=== PATIENT | male | born 1975 | race Caucasian/White ===

== ENCOUNTER 2021-04-26 11:27 | Emergency (ER) | payer OTHER, SELFPAY ==
--- NOTE | ~2021-04-26 | XR_ITS ---
EXAMINATION: XR ANKLE, LEFT CLINICAL INFORMATION: Trauma, pain COMPARISON: None TECHNIQUE: AP, lateral, and mortise views of the left ankle. FINDINGS: There is an oblique fracture involving the distal fibula. There is no significant angulation or displacement. No dislocation or destructive process. The medial and posterior malleoli appear intact. Ankle mortise is symmetric. The talar dome shows no osteochondral lesion. Visualized subtalar joint unremarkable. Base of fifth metatarsal appears intact. XR/XR ankle LT 2V IMPRESSION: Fracture distal fibula. No dislocation or destructive process.
[2021-04-26 13:01] VITALS: BP 167/104; PULSE 97; RESP 20; TEMP 36.5; O2SAT 98; BMI 21.2
--- NOTE | 2021-04-26 13:59 | ED_ITS ---
HPI - Extremity Injury (Lower) General Chief Complaint: Extremity Injury, Lower Stated Complaint: FALL Time Seen by Provider: 04/26/21 13:50 Source: patient Mode of arrival: ambulatory Limitations: no limitations History of Present Illness HPI Narrative: Patient presents to ED for left lower extremity pain. Patient presents to ED for left ankle pain since Monday after falling and rolling his ankle. Patient denies hitting head or loss of consciousness. Patient states pain on ambulation since Monday. Patient denies any nausea, vomiting, headache, rectal bleeding, chest pain, or any abdominal pain. Related Data Previous Rx's Medication Instructions Recorded naproxen 500 mg tablet 500 mg PO BID PRN #20 tab 04/26/21 Allergies Allergy/AdvReac Type Severity Reaction Status Date / Time No Known Allergies Allergy Verified 04/26/21 13:56 Review of Systems Review of Systems: Yes all other systems are reviewed and are negative Constitutional: Constitutional: Reports as per HPI and Reports no additional constitutional complaints Eyes: Eyes: Reports as per HPI and Reports no additional eye complaints ENT: Reports system reviewed and no additional complaints, except as documented and Reports as per HPI Cardiovascular: Cardiovascular: Reports as per HPI and Reports no additional cardiovascular complaints Respiratory: Respiratory: Reports as per HPI and Reports no additional resp iratory complaints Gastrointestinal: Gastrointestinal: Reports as per HPI and Reports no additional gastrointestinal complaints Genitourinary: Genitourinary: Reports no additional male genitourinary complaints and Reports as per HPI Musculoskeletal: Musculoskeletal: Reports no additional musculoskeletal complaints, Reports as per HPI and Reports arthralgias (left ankle pain) Integumentary/Breasts: Skin/Breast: Reports system reviewed and no additional complaints, except as docu and Reports as per HPI Neurologic: Reports system reviewed and no additional complaints, except as documented and Reports as per HPI Psychiatric: Psychiatric: Reports no additional psychiatric complaints and Reports as per HPI [facility] Social History Social History Advance Directives: No Advance Directives Information Provided: No Physical Exam Vital Signs: Vital Signs: Last Vital Signs Temp 97.7 F 04/26/21 13:01 Pulse 97 04/26/21 13:01 Resp 20 04/26/21 13:01 BP 167/104 H 04/26/21 13:01 Pulse Ox 98 04/26/21 13:01 Body Mass Index 21.2 Const: General: cooperative, healthy appearing, comfortable, no acute distress, well developed, alert, awake and Physically active Orientation/consciousness: patient oriented x3 HENMT: Head: Yes normal to inspection, Yes No palpable skull fracture present, Yes normocephalic and Yes atraumatic Eyes: General: appearance normal, both eyes and all related structures Neck: Neck: Yes normal visual inspection, Yes full ROM, Yes no lymphade nopathy, Yes no meningeal signs, Yes trachea midline, Yes supple and No tender Chest: Chest palpation & inspection: normal inspection of the chest and normal palpation of entire chest wall Resp: Effort & Inspection: normal respiratory effort and able to speak in complete sentences Auscultation: clear to auscultation bilaterally Cardio: Jugular venous distension: no JVD Heart sounds: S1 normal heart sound present and S2 normal heart sound present GI: Inspection: Yes normal to inspection and No abdominal wall ecchymosis Palpation (GI): Soft to palpation, not firm, nontender, no guarding and not rig id : General: Yes no CVA tenderness Back/Spine/Pelvis: Back: no CVA tenderness and No back tenderness Skin: General skin exam: no rashes or lesions noted and elasticity normal Neuro: General: patient oriented x3, gait normal, tone normal, no meningeal signs and CN's II-XI intact bilaterally Cranial nerves: Yes CN's II-XII intact bilaterally Gait exam (Neuro): Normal gait present Extrem: Upper/lower leg/hip images: 1. Tenderness on palpation and motor exam intact. pedal pulses intact. positive ecchymosis and swelling. vascular and neuro exam is inact. MOtor exam is intact, but limited due to pain. patient ambulated on foot without crutch. Psych: Appearance: grossly normal, well kempt and not disheveled Course Course Course Narrative: Patient will be sent for x-rays. Known initial head CT scan. Patient denies any head trauma. Reevaluation(s) Reevaluation #1: X-ray shows fibular fracture per patient refused any pain meds. Patient will be placed in splint and follow-up with orthopedics. Time: 14:10 MDM - Extremity Injury (Lower) MDM Narrative Medical decision making narrative: Fibular fracture Discharge Plan Discharge Clinical Impression: Closed left fibular fracture Patient Disposition: Home, Self-Care Instructions: Leg Fracture (ED) Additional Instructions: Your x-ray shows fibular fracture. You will need a splint. You need to follow- up with orthopedic surgeon for further evaluation. Return to the ED for worsening pain, bluish black discoloration of toes, redness of bluish black discoloration of legs, chest pain, shortness of breath, fever, chills, numbnss/tinling, or any other concerning symptoms. Prescriptions: New naproxen 500 mg tablet 500 mg PO BID PRN (Reason: pain) Qty: 20 RF: 0 Referrals: Dustin Piper MD [Physician] - 2 days (Closed left fibula fracture) Stand Alone Forms: Work/School Release Interventions: ED Discharge Assessment Last Done: 04/26/21 14:22 Discharge Date/Time: 04/26/21 14:27 Print Language: Grenadian
== END 2021-04-26 14:27 | disposition home or self-care (01) ==
PROVIDERS: Emergency Provider Emergency Medicine
DX: S82.402A Unspecified fracture of shaft of left fibula, initial encounter for closed fracture (principal); M79.662 Pain in left lower leg; X50.1XXA Overexertion from prolonged static or awkward postures, initial encounter; Y93.9 Activity, unspecified; Y92.9 Unspecified place or not applicable; Y99.9 Unspecified external cause status; Z79.899 Other long term (current) drug therapy
CPT/HCPCS: 29505; 73600; 99283; 99284

== ENCOUNTER 2021-05-06 07:25 | Outpatient (REF) | payer OTHER, SELFPAY | END 2021-05-06 07:26 | disposition home or self-care (01) | LOC: HO.HOSX 07:25 | PROVIDERS: Visit Provider Physician Assistant | DX: Z13.89 Encounter for screening for other disorder (principal) ==

== ENCOUNTER 2021-05-17 09:00 | Outpatient (REF) | payer OTHER, SELFPAY ==
--- NOTE | ~2021-05-17 | XR_ITS ---
EXAMINATION: XR ANKLE, LEFT CLINICAL INFORMATION: Left ankle fracture, follow-up. COMPARISON: 04/26/2021 left ankle radiographs. TECHNIQUE: AP, lateral, and mortise views of the left ankle. FINDINGS: Again seen is a minimally displaced fracture of the distal left fibula with progressive healing. The distal tibia is intact. The tibiotalar joint space is unremarkable. The tarsal bones are normally aligned. The soft tissues are unremarkable. XR/XR ankle LT min 3V IMPRESSION: Progressive interval healing of distal fibular fracture. Fracture lines are still visible.
== END 2021-05-17 09:01 | disposition home or self-care (01) ==
LOC: HO.HOSX 09:00
PROVIDERS: Visit Provider Physician Assistant
DX: S82.832A Other fracture of upper and lower end of left fibula, initial encounter for closed fracture (principal)
CPT/HCPCS: 73610

== ENCOUNTER 2021-06-16 09:59 | Outpatient (REF) | payer OTHER, SELFPAY ==
--- NOTE | ~2021-06-16 | XR_ITS ---
EXAMINATION: XR ANKLE, LEFT CLINICAL INFORMATION: pain COMPARISON: 05/17/2021 TECHNIQUE: AP, lateral, and mortise views of the left ankle. FINDINGS: There is an oblique incompletely healed fracture of the left fibula, no significant displacement. There is bone remodeling, new bone formation, periosteal reaction, Ankle mortise is preserved. XR/XR ankle LT min 3V IMPRESSION: Healing nondisplaced fracture of the left fibula.
== END 2021-06-16 10:00 | disposition home or self-care (01) ==
LOC: HO.HOSX 09:59
PROVIDERS: Visit Provider Physician Assistant
DX: S82.832D Other fracture of upper and lower end of left fibula, subsequent encounter for closed fracture with routine healing (principal)
CPT/HCPCS: 73610

== ENCOUNTER 2021-07-28 08:13 | Outpatient (REF) | payer OTHER, SELFPAY | END 2021-07-28 08:14 | disposition home or self-care (01) | LOC: HO.HOSX 08:13 | PROVIDERS: Visit Provider Physician Assistant | DX: Z13.89 Encounter for screening for other disorder (principal) ==

== ENCOUNTER 2022-02-14 15:08 | Emergency (ER) | payer OTHER, SELFPAY ==
--- NOTE | ~2022-02-14 | XR_ITS ---
EXAMINATION: XR FOOT, LEFT CLINICAL INFORMATION: Pain. COMPARISON: None TECHNIQUE: AP, lateral, and oblique views of the left foot. FINDINGS: There is mild osteopenia. The bones and soft tissues are normal. No fracture. Alignment is anatomic. Joint spaces are maintained. XR/XR foot LT 2V IMPRESSION: Normal left foot.
[2022-02-14 15:47] VITALS: BP 130/47; PULSE 80; RESP 18; TEMP 36.7; O2SAT 99; BMI 22.8
--- NOTE | 2022-02-14 20:52 | ED.EXTPRO ---
HPI - Extremity Problem General Chief complaint: Extremity Problem Stated complaint: L foot pain Time Seen by Provider: 02/14/22 20:49 Source: patient Mode of arrival: ambulatory History of Present Illness HPI Narrative: 46-year-old male with a past medical history of previous distal fibular fracture, presenting to the ED complaining of plantar left foot pain worsening over the past few weeks. Denies injury, trauma, fall or twisting. Reports pain worse in the morning, gradually gets better throughout the day. Also reports intermittent foot swelling since fracture years ago. Denies numbness, tingling, weakness, fever MD Complaint: joint pain Onset (ago): week(s) Pain Consistency: intermittent Related Data Previous Rx's Medication Instructions Recorded naproxen 500 mg tablet 500 mg PO BID PRN pain #20 tabs 04/26/21 acetaminophen 500 mg tablet 500 mg PO Q6H PRN fever or pain 02/14/22 (Tylenol Extra Strength) #14 tabs naproxen 500 mg tablet 500 mg PO BID PRN pain 10 days #20 02/14/22 tabs Allergies Allergy/AdvReac Type Severity Reaction Status Date / Time No Known Allergies Allergy Verified 05/17/21 14:23 Review of Systems Review of Systems: Constitutional: No Fever, No Chills ENT/Mouth: No Ear Pain, No Nasal Congestion, No sore throat, No Rhinorrhea, No Swallowing Difficulty Cardiovascular: No Chest Pain, No SOB Respiratory: No Cough, No Sputum, No Wheezing Gastrointestinal: No Nausea, No Vomiting, No Diarrhea, No Constipation, No Abdominal pain Genitourinary: No Dysuria, No Urinary Frequency, No Hematuria Musculoskeletal: + joint pain, No Myalgias, +intermittent L foot Swelling Skin: No Skin Lesions, No rash Neuro: No Weakness, No Numbness, No Paresthesias Yes all other systems are reviewed and are negative Constitutional: Constitutional: Reports as per HPI [facility] Past Medical History Attestation statement: The following information was validated with the patient. 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 Physical Exam Vital Signs: Vital Signs: Last Vital Signs Temp 98.0 F 02/14/22 15:47 Pulse 80 02/14/22 15:47 Resp 18 02/14/22 15:47 BP 130/47 L 02/14/22 15:47 Pulse Ox 99 02/14/22 15:47 O2 Del Method 02/14/22 15:47 BMI result Body Mass Index 22.8 Const: General: cooperative, healthy appearing and no acute distress Orientation/consciousness: patient oriented x3 Limitations: no limitations HEENT: Head: Yes normal to inspection and Yes atraumatic Ears: hearing grossly normal bilaterally General nose exam: Normal external nose present Face and sinus: Yes normal facial exam Eyes: General: appearance normal, both eyes and all related structures EOM: EOMs intact bilaterally Neck: Neck: Yes normal visual inspection and Yes no meningeal signs Resp: Effort & Inspection: normal respiratory effort and no respiratory distress Cardio: Rate: regular rate Peripheral pulses: dorsalis pedis present Skin: Rashes: no rashes Wounds: no wounds Neuro: General: patient oriented x3, tone normal and no meningeal signs Gait exam (Neuro): Normal gait present Extrem: Other: Left foot with mild swelling. + tenderness to plantar fascia without erythema, no ecchymosis/fluctuance or induration. Neurovascularly intact. Full range of motion intact Course Course Course Narrative: XR foot LT 2V IMPRESSION: Normal left foot. Results discussed with patient including worrisome signs and symptoms and strict return precautions, and when to return to the emergency department. They verbalized understanding and feel safe for discharge at this time. MDM - Extremity (Nontraumatic) MDM Narrative Medical decision making narrative: 46-year-old male with a past medical history of previous distal fibular fracture, presenting to the ED complaining of plantar left foot pain worsening over the past few weeks. On exam vital signs stable, NAD/nontoxic appearing. Concern for plantar fasciitis versus occult fracture. No evidence of cellulitis. Lower suspicion for gout/septic joint Plan: X-rays Medical Records Attestation: I reviewed the patient's medical records. Lab Data Attestation: I reviewed the patient's lab results. Discharge Plan Discharge Clinical Impression: Plantar fasciitis Patient Disposition: Home, Self-Care Instructions: Plantar Fasciitis (ED), Plantar Fasciitis Exercises (ED) Additional Instructions: X-ray was unremarkable. He likely have plantar fasciitis Naproxen as an anti-inflammatory/pain medication, take with food. In addition take Tylenol. You should get insoles/report to put in her shoes. Wear supportive shoes. Follow up with your primary care doctor and Podiatry as needed Prescriptions: New acetaminophen [Tylenol Extra Strength] 500 mg tablet 500 mg PO Q6H PRN (Reason: fever or pain) Qty: 14 0RF naproxen 500 mg tablet 500 mg PO BID PRN (Reason: pain) 10 Days Qty: 20 0RF No Action naproxen 500 mg tablet 500 mg PO BID PRN (Reason: pain) Qty: 20 0RF Referrals: Physician,None [Primary Care Provider] - Reese Sheffield MD [Physician] - 10 days (as needed) Stand Alone Forms: Work/School Release
[2022-02-14] MEDS: Ketorolac Tromethamine 30 MG/ML VIAL IM (21:00)
== END 2022-02-14 21:03 | disposition home or self-care (01) ==
PROVIDERS: Emergency Provider Emergency Medicine
DX: M72.2 Plantar fascial fibromatosis (principal); Z79.899 Other long term (current) drug therapy
CPT/HCPCS: 73620; 96372; 99283; 99284; J1885

== ENCOUNTER 2023-02-27 12:13 | Emergency (ER) | payer SELFPAY ==
--- NOTE | ~2023-02-27 | XR_ITS ---
EXAMINATION: XR SHOULDER, RIGHT CLINICAL INFORMATION: Right shoulder pain. COMPARISON: None available. TECHNIQUE: Three views of the right shoulder. FINDINGS: Bones are osteopenic. There is a distal clavicular fracture with cephalad displacement of the distal fragment by 8 mm. This is likely acute or subacute in nature. No additional fractures. Glenohumeral joint appears well-preserved. Soft tissues are swollen around the AC joint. XR/XR shoulder RT min 2V IMPRESSION: 1. Displaced distal clavicular fracture, likely acute or subacute in nature. 2. No additional fractures. 3. Osteopenia.
[2023-02-27 12:26] VITALS: BP 177/110; PULSE 105; RESP 17; TEMP 36.1; O2SAT 97; BMI 20.9
--- NOTE | 2023-02-27 12:36 | ED_ITS ---
HPI - Extremity Problem General Chief complaint: Extremity Injury, Upper Stated complaint: R Shoulder Injury 02/25/23 Time Seen by Provider: 02/27/23 13:28 Source: patient, RN notes reviewed and old records reviewed Mode of arrival: ambulatory History of Present Illness HPI Narrative: 48 year old male with no significant past medical history presents to the ED c/o right shoulder pain and decreased ROM s/p mechanical trip and fall down an embankment on Monday morning while fishing. Reports abrasions to both knees, right cheek, and palms. Denies LOC, numbness/tingling, weakness, symptoms prior to fall. He notes that there is some bruising around the shoulder area as well that he noticed today. Onset (ago): day(s) (1) Related Data Previous Rx's Medication Instructions Recorded naproxen 500 mg tablet 500 mg PO BID PRN pain #20 tabs 04/26/21 acetaminophen 500 mg tablet 500 mg PO Q6H PRN fever or pain 02/14/22 (Tylenol Extra Strength) #14 tabs naproxen 500 mg tablet 500 mg PO BID PRN pain 10 days #20 02/14/22 tabs hydrochlorothiazide 25 mg tablet 25 mg PO DAILY #30 tabs 02/27/23 Allergies Allergy/AdvReac Type Severity Reaction Status Date / Time No Known Allergies Allergy Verified 05/17/21 14:23 Review of Systems Review of Systems: Constitutional: No Fever, No Chills ENT/Mouth: No Ear Pain, No Nasal Congestion, No sore throat Cardiovascular: No Chest Pain, No SOB Respiratory: No Cough Gastrointestinal: No Nausea, No Vomiting, No Diarrhea, No Constipation, No Abdominal pain Genitourinary: NNo Urinary Incontinence/retention Musculoskeletal: + joint pain, No Myalgias, + Joint Swelling Skin: + abrasions, No rash Neuro: No Weakness, No Numbness, No Paresthesias, no LOC Yes all other systems are reviewed and are negative Constitutional: Constitutional: Reports as per [facility] Past Medical History Attestation statement: The following information was validated with the patient. Source: old records reviewed Social History Social History Advance Directives: No Advance Directives Information Provided: No Current occupational status: employed Current occupation: [employer] Physical Exam Vital Signs: Vital Signs: Last Vital Signs Temp 98 F 02/27/23 17:25 Pulse 89 02/27/23 17:25 Resp 19 02/27/23 17:25 BP 164/109 H 02/27/23 17:25 Pulse Ox 98 02/27/23 17:25 O2 Del Method Room Air 02/27/23 17:25 BMI result Body Mass Index 20.9 Const: General: cooperative, healthy appearing, no acute distress, alert and awake Orientation/consciousness: patient oriented x3 Limitations: no limitations HEENT: Other: + abrasion noted to right cheek Head: Yes normal to inspection, No Hernandez's sign and No raccoon eyes Ears: hearing grossly normal bilaterally General nose exam: Normal external nose present Eyes: General: appearance normal, both eyes and all related structures EOM: EOMs intact bilaterally Neck: Other: No midline cervical spinous tenderness Neck: Yes normal visual inspection, Yes no meningeal signs and No anterior neck swelling Resp: Effort & Inspection: normal respiratory effort and no respiratory distress Cardio: Rate: regular rate Peripheral pulses: radial pulses present and ulnar radial pulses present Back/Spine/Pelvis: Other: No midline cervical/thoracic/lumbar spinous tenderness/step-off or deformity Skin: Other: Superficial abrasions noted on both knees and palms Rashes: no rashes Neuro: General: patient oriented x3, gait normal, tone normal, moves all extremities, no meningeal signs, no focal motor deficits and CN's II-XI intact bilaterally Cognition (Neuro): normal cognition Gait exam (Neuro): Normal gait present Motor exam (neuro): 5/5 motor strength present throughout Extrem: Other: + Deformity/guarding of the right shoulder/clavicle with swelling, and ecchymosis. + diffusely tender to palpation > distal aspect of the clavicle with decreased shoulder ROM secondary to pain. Neurovascular intact distally. Elbow ROM intact, supination/pronation intact. Wrist/hand nontender, FROM /NV intact. No snuffbox tenderness Psych: Affect: normal affect Attitude: cooperative Course Course Course Narrative: This is an RME: Additional HPI, ROS, PE not included below will be deferred to primary provider. [age] old male presents for evaluation of inability to move right shoulder status post fall on Monday patient fell while fishing, trip and fall, fell, scraped his face on concrete cylinders, no loss of consciousness, not on blood thinners. Since then he has also been having right shoulder pain, he reports he has not been able to move it. Denies numbness and tingling. Plan imaging. XR shoulder RT min 2V IMPRESSION: 1.? Displaced distal clavicular fracture, likely acute or subacute in nature. 2.? No additional fractures. 3.? Osteopenia. > sling applied. On repeat elevation patient persistently hypertensive and tachycardic > oxycodone ordered for pain control. Patient denies currently having PCP or being prescribed antihypertensives. Will give 25 mg of HCTZ and re-evaluate > patient remains asymptomatic without headache/CP & given dose of oral clonidine. Discussed importance of PCP follow-up, and HTN being the silent k iller -1729--repeat blood pressure 164/107 > patient requesting discharge Results discussed with patient including worrisome signs and symptoms and strict return precautions, and when to return to the emergency department. They verbalized understanding and feel safe for discharge at this time. Medications Administered Discontinued Medications Generic Name Dose Route Start Last Admin Trade Name Pallavi PRN Reason Stop Dose Admin Clonidine HCl 0.1 mg 02/27/23 16:38 02/27/23 16:45 Clonidine Hcl 0.1 Mg Tablet PO 02/27/23 16:39 0.1 mg ONCE ONE Administration Protocol Hydrochlorothiazide 25 mg 02/27/23 15:17 02/27/23 15:36 Hydrochlorothiazide 25 Mg Tablet PO 02/27/23 15:18 25 mg ONCE ONE Administration Protocol Oxycodone HCl 5 mg 02/27/23 15:16 02/27/23 15:37 Oxycodone Hcl Immed Release 5 Mg Tablet PO 02/27/23 15:17 5 mg ONCE ONE Administration Medical Decision Making Medical Decision Making MDM Narrative: 48 year old male with no significant past medical history presents to the ED c/o right shoulder pain and decreased ROM s/p mechanical trip and fall down an embankment on Monday morning while fishing. On examination hypertensive and tachycardic likely from pain. + deformity to right shoulder/clavicle with guarding as noted above. Diffusely tender with limited ROM. Concern for fracture vs dislocation vs tendon/ligamental or MSK injury. Low suspicion for s eptic joint/arthritis or DVT. On likely ICH Plan: X-ray Please refer to course for remaining clinical decision making, interpretation of labs/imaging results, and discussions with consultants and/or family members. Differential Diagnosis Differential Diagnoses: The differential diagnosis associated with the presentation includes As above Admission/Observation Consideration of admission/observation: Escalation of care including admission/observation considered Lab Data MDM Lab Attestation statement: I reviewed the patient's lab results. Independent Interpretation I performed an independent interpretation of an: Plain X-Ray (Clavicular fracture appreciated) Radiology Impression Discussion of test interpretation with radiology: I have reviewed the radiologist's reading. External Record Review External record reviewed: Inpatient record, Office record, Outpatient record, Prior outpatient labs, Prior outpatient radiology, Primary care record and Outside ED record Tests considered The following testing was considered but not selected: As above Prescription Management I considered prescription management with: Pain Medication Critical Care Time Critical Care Time Critical Care Time: Yes Total Critical Care Time: 35 Attestation: I have personally provided critical care time exclusive of time spent on separately billable procedures. Time includes review of lab data, radiology results, discussion with consultants, and monitoring for potential decompensation. Intervention performed as documented. Discharge Plan Discharge Clinical Impression: Displaced fracture of clavicle, Hypertension Patient Disposition: Home, Self-Care Instructions: Clavicle Fracture (ED) Additional Instructions: You have a broken clavicle, you need to follow-up with the orthopedic surgeon in 1 week YOU NEED TO WEAR SLING AT ALL TIMES, YOU MAY ONLY REMOVE TO SHOWER Please continue to move her elbow, wrist and hand Take Tylenol and Motrin for pain YOU HAD VERY ELEVATED BLOOD PRESSURE IN THE EMERGENCY DEPARTMENT, YOU NEED TO FOLLOW-UP WITH A PRIMARY CARE DOCTOR. HYDROCHLOROTHIAZIDE IS AN ANTIHYPERTENSIVE MEDICATION PLEASE START TAKING PRESCRIBED If you develop chest pain/shortness of breath, headache, weakness, tingling, vision changes or persistent/worsening pain return to the emergency department Prescriptions: New hydrochlorothiazide 25 mg tablet 25 mg PO DAILY Qty: 30 0RF No Action naproxen 500 mg tablet 500 mg PO BID PRN (Reason: pain) Qty: 20 0RF acetaminophen [Tylenol Extra Strength] 500 mg tablet 500 mg PO Q6H PRN (Reason: fever or pain) Qty: 14 0RF naproxen 500 mg tablet 500 mg PO BID PRN (Reason: pain) 10 Days Qty: 20 0RF Referrals: [facility] [Provider Group] - 1 week Stand Alone Forms: Work/School Release
--- NOTE | 2023-02-27 14:54 | MHC.EDTECH ---
sling was placed on pts right shoulder. pt tolerated well, PA aware
[2023-02-27 15:11] VITALS: BP 153/115; PULSE 101; RESP 20; TEMP 36.8; O2SAT 100
[2023-02-27] MEDS: hydroCHLOROthiazide 25 MG TABLET PO (15:36)
[2023-02-27] MEDS: oxyCODONE HCl Immed Release 5 MG TABLET PO (15:37)
[2023-02-27 16:07] VITALS: BP 174/118; PULSE 90; RESP 18; O2SAT 98
[2023-02-27] MEDS: cloNIDine HCL 0.1 MG TABLET PO (16:45)
[2023-02-27 17:25] VITALS: BP 164/109; PULSE 89; RESP 19; TEMP 36.6; O2SAT 98
== END 2023-02-27 17:55 | disposition home or self-care (01) ==
PROVIDERS: Emergency Provider Emergency Medicine
DX: S42.031A Displaced fracture of lateral end of right clavicle, initial encounter for closed fracture (principal); S80.212A Abrasion, left knee, initial encounter; S80.211A Abrasion, right knee, initial encounter; S00.81XA Abrasion of other part of head, initial encounter; S60.512A Abrasion of left hand, initial encounter; S60.511A Abrasion of right hand, initial encounter; W17.81XA Fall down embankment (hill), initial encounter; I10 Essential (primary) hypertension; R00.0 Tachycardia, unspecified; Y93.19 Activity, other involving water and watercraft; Y92.89 Other specified places as the place of occurrence of the external cause; Y99.9 Unspecified external cause status
CPT/HCPCS: 73030; 99283; 99284

== ENCOUNTER 2023-03-14 10:12 | Outpatient (REF) | payer SELFPAY ==
--- NOTE | ~2023-03-14 | XR_ITS ---
EXAMINATION: XR CLAVICLE, RIGHT CLINICAL INFORMATION: Follow-up fracture. COMPARISON: Radiographs dated 02/27/2023. TECHNIQUE: Straight AP and cephalad angulated AP views of the right clavicle. FINDINGS: There is mild bony demineralization. An oblique distal clavicular fracture is redemonstrated, with approximately 1.1 cm of cephalad displacement of the distal fracture fragment. The acromioclavicular and coracoclavicular intervals are normal. The glenohumeral joint is intact. No soft tissue calcification or foreign body is seen. There is no right pneumothorax. XR/XR clavicle RT IMPRESSION: A displaced distal right clavicular fracture is redemonstrated, as detailed. No dislocation is seen.
== END 2023-03-14 10:13 | disposition home or self-care (01) ==
LOC: HO.HOSX 10:12
PROVIDERS: Visit Provider Physician Assistant
DX: S42.001A Fracture of unspecified part of right clavicle, initial encounter for closed fracture (principal)
CPT/HCPCS: 73000; 99212

== ENCOUNTER 2023-03-14 10:12 | Outpatient (AMB) | payer SELFPAY ==
--- NOTE | 2023-03-14 10:19 | MHC.OFFVIS ---
Intake Vital Signs 03/14/23 10:26 Height 5 ft 8 in Weight 137 lb BMI 20.8 Intake Visit Reasons: Rt Displaced Clavicle Fx Intake Note: Kostas 48 yr old right hand dominant male presents today s/p tripping and falling down an embankment on Monday morning while fishing on 02/26/23. Seen in ED a day after where xrays were done and ?patient placed in a sling. Currently states he is limited ROM and has soreness. States he is better then he was day after falling. Allergies No Known Allergies Allergy (Verified 05/17/21 14:23) HPI Rt Displaced Clavicle Fx HPI Details 48-year-old right hand dominant male who presents to the office today for right clavicle injury s/p falling down an embankment while fishing, 02/26/23. He was seen at ED a after his DOI where x-rays performed and he was placed in a sling. He states he has soreness and limited ROM in his clavicle. His pain is currently improved. He is currently working as a military communications specialist. [facility] Social History Current occupational status: employed Current occupation: forklift op/rt hand Review of Systems Const All systems reviewed & are unremarkable except as noted in HPI and below Physical Exam Vital Signs: BMI result Body Mass Index 20.8 Extrem Other: Right clavicle: Skin is intact. No skin tenting or skin breakdown. There is no obvious bony deformity - he does have mild tenderness to palpation over the fracture site. Anterior deltoid sensation is intact. Full ROM of elbow with no pain. No pain along the forearm. Negative squeeze test. No pain along the distal radius. NVI. Office Procedures Fracture Care Fracture Billing Code: Fracture Billing Code Results Reviewed Results Reviewed: Xrays were obtained in the office today and personally reviewed by me of the right clavicle show mildly displaced distal clavicle fracture without significant shortening Assessment & Plan Assessment & Plan (1) Right clavicle fracture: Code(s): S42.001A - Fracture of unspecified part of right clavicle, initial encounter for closed fracture Plan He is going to begin physical therapy to work on periscapular stabilization and postural training, no lifting or RTC strengthening. He can discontinue the use of his sling and he will avoid any overhead use of his arm. He should avoid pushing pulling or carrying with that right arm, which means that in order to return to work, he will have to do light duty till I see him back in 4-6 weeks with new x-rays, sooner if needed. Orders: Orders XR clavicle RT Today S42.009A - Fracture of unspecified part of unspecified clavicle, initial encounter for closed fracture PT Evaluation and Treatment Today S42.001A - Fracture of unspecified part of right clavicle, initial encounter for closed fracture Patient Instructions: Scribed for Edmar Estrada PA-C, by Irving Butler medical oncology physician, on 03/14/2023 at 10:30 AM EST. I, Edmar Estrada PA-C, have personally reviewed and agree with the information entered by the scribe. Coding Level of Care Code New Pt Level 3 (98997) Diagnoses Right clavicle fracture S42.001A CPT Codes Fracture Care - Fracture Billing Code: Fracture Billing Code ([id number])
[2023-03-14 10:26] VITALS: BMI 20.8
== END 2023-03-14 11:37 | disposition home or self-care (01) ==
PROVIDERS: Visit Provider Physician Assistant
DX: S42.021A Displaced fracture of shaft of right clavicle, initial encounter for closed fracture (principal)
CPT/HCPCS: 99213

== ENCOUNTER 2023-04-10 06:49 | Outpatient (REF) | payer SELFPAY ==
--- NOTE | ~2023-04-10 | XR_ITS ---
EXAMINATION: XR CLAVICLE, RIGHT CLINICAL INFORMATION: Follow-up fracture. COMPARISON: Prior radiographs dated 03/15/2023 and 02/27/2023. TECHNIQUE: Straight AP and cephalad angulated AP views of the right clavicle. FINDINGS: Bony mineralization is normal. An oblique distal clavicular fracture is redemonstrated, with approximately 1.2 cm of cephalad displacement of the distal fracture fragment. The acromioclavicular and coracoclavicular intervals are normal. The glenohumeral joint is intact. No focal soft tissue cavitation or foreign body is noted. There is no right pneumothorax. XR/XR clavicle RT IMPRESSION: There is a stable displaced distal right clavicular fracture. No dislocation is seen. No significant new callus formation is noted
== END 2023-04-10 06:50 | disposition home or self-care (01) ==
LOC: HO.HOSX 06:49
PROVIDERS: Visit Provider Physician Assistant
DX: S42.034D Nondisplaced fracture of lateral end of right clavicle, subsequent encounter for fracture with routine healing (principal); X58.XXXD Exposure to other specified factors, subsequent encounter; Y92.9 Unspecified place or not applicable
CPT/HCPCS: 73000; 99212

== ENCOUNTER 2023-04-10 10:48 | Outpatient (AMB) | payer SELFPAY ==
--- NOTE | 2023-04-10 11:00 | A.OFFVIS_ITS ---
Intake Intake Visit Reasons: ov- Rt Displaced Clavicle Fx Intake Note: Kostas a 48 year old right hand dominant male presents today for a follow up on right clavicle fx, DOI 02/26/23. Patient reports he is doing well, states mild pain here and there, mainly in the mornings. He was not able to attend PT. Allergies No Known Allergies Allergy (Verified 04/10/23 11:04) HPI ov- Rt Displaced Clavicle Fx HPI Details 48-year-old male who returns to the [facility] today for a follow-up of right clavicle fracture, 02/26/23. He states he has mild intermittent pain mostly in the morning but is doing well overall. He reports he was unable to attend physical therapy. [facility] Social History Current occupational status: employed Current occupation: forklift op/rt hand Review of Systems Const All systems reviewed & are unremarkable except as noted in HPI and below Physical Exam Extrem Other: Right clavicle: Skin is intact. No skin tenting or skin breakdown. There is no obvious bony deformity -No tenderness to palpation over the fracture site. Anterior deltoid sensation is intact. Full ROM of elbow in all directions with no pain. No pain along the forearm. Negative squeeze test. No pain along the distal radius. NVI. Results Reviewed Results Reviewed: Xrays were obtained in the office today and personally reviewed by me of the right clavicle show mildly displaced distal clavicle fracture without significant shortening - routine healing Assessment & Plan Assessment & Plan (1) Right clavicle fracture: Code(s): S42.001A - Fracture of unspecified part of right clavicle, initial encounter for closed fracture Qualifiers: Encounter type: subsequent encounter Clavicle location: lateral end Fracture type: closed Fracture alignment: nondisplaced Fracture healing: with routine healing Qualified Code(s): S42.034D - Nondisplaced fracture of lateral end of right clavicle, subsequent encounter for fracture with routine healing Plan He will work on exercises at home on his own. He will increase activity as tolerated and will return to work on 04/17/23 without restrictions. If there are any questions or concerns he will contact our office otherwise f.u prn. Orders: Orders XR clavicle RT Today S42.009A - Fracture of unspecified part of unspecified clavicle, initial encounter for closed fracture Patient Instructions: Scribed for Edmar Estrada PA-C, by Irving Butler medical office clerk, on 04/10/2023 at 10:45 AM EST. Edmar Bryant PA-C, have personally reviewed and agree with the information entered by the scribe. Coding Level of Care Code Global (99770) Diagnoses Closed nondisplaced fracture of acromial end of right clavicle with routine healing, subsequent encounter S42.034D Encounter type: subsequent encounter Clavicle location: lateral end Fracture type: closed Fracture alignment: nondisplaced Fracture healing: with routine healing
== END 2023-04-10 11:08 | disposition home or self-care (01) ==
PROVIDERS: Visit Provider Physician Assistant
DX: S42.034D Nondisplaced fracture of lateral end of right clavicle, subsequent encounter for fracture with routine healing (principal)
CPT/HCPCS: 99213

== ENCOUNTER 2025-06-22 08:40 | Emergency (ER) | payer SELFPAY ==
--- NOTE | ~2025-06-22 | XR_ITS ---
CLINICAL HISTORY: fall, left side chest rib pain 5 view, chest and left ribs Comparison: None provided Findings: The lungs are clear. No pneumothorax or effusions. Heart shadow is nonenlarged. Nondisplaced fractures of the lateral aspect of the left-sided 9th and 10th ribs. IMPRESSION: Left-sided rib fractures as noted This document has been electronically signed by: Jose Campbell MD on 06/22/2025 09:16:23
--- NOTE | ~2025-06-22 | CT_ITS ---
CLINICAL HISTORY: ?pubic fami fx on xr CT pelvis without contrast Comparison: None provided Findings: Left inferior pubic ramus fracture confirmed by CT, reference axial images [id number] of series 2. There is also a hairline, nondisplaced superior pubic ramus fracture, axial 263-274. No femoral fracture. No dislocation. Osseous demineralization noted. There is a nondisplaced fracture involving the posterior elements of S1, axial 76. Nondisplaced left sacral body fracture, axial 31 Mild presacral stranding. No pelvic hematoma. Normal appendix. The bladder is distended Impression: Nondisplaced fractures involving the left superior and inferior pubic ramus. Nondisplaced left sacral body fracture. Nondisplaced posterior element fracture on the left of S1. Mild stranding within the presacral space and along the left psoas muscle with no significant intrapelvic hematoma. This document has been electronically signed by: Robin Biswas MD on 06/22/2025 11:05:38
--- NOTE | ~2025-06-22 | XR_ITS ---
CLINICAL HISTORY: fall down stairs 3 views sacrum and coccyx Comparison: None provided Findings Lucency again suggested along the inferior pubic ramus on the left. The sacrum is intact. Impression: Probable nondisplaced inferior pubic ramus fracture on the left. This document has been electronically signed by: Robin Biswas MD on 06/22/2025 10:19:24
--- NOTE | ~2025-06-22 | XR_ITS ---
CLINICAL HISTORY: L hip pain fall down stairs 3 view, pelvis and left hip Comparison: None provided Findings: Faint lucency along the left inferior pubic ramus The soft tissues are unremarkable. Mild degenerative changes at both hips IMPRESSION: Possible nondisplaced left inferior pubic ramus fracture. Mild degenerative changes of the hips. This document has been electronically signed by: Robin Biswas MD on 06/22/2025 10:19:30
[2025-06-22 08:42] VITALS: BP 152/111; PULSE 120; RESP 16; TEMP 36.4; O2SAT 96; BMI 21.3
--- OUTSIDE RECORDS SUMMARY | 2025-06-22 09:20 | XMS_ITS | Data Portability ---
Author Organization [facility], [id number] Address [address] [place] [address] Assessment No assessment recorded. Plan of Treatment Reminders Order Date Submit Date Provider Last Modified By Organization Details Last Modified Time Details Appointments None record ed. Lab None record ed. Referral None record ed. Procedures None record ed. Surgeries None record ed. Imaging None record ed. Medication Orders None record ed. Patient TargetsNo targets recorded. Patient InstructionsNo instructions recorded. Reason for Referral None Reported. Medical Equipment None Reported. Vitals None Recorded Social History None recorded. Functional Status None recorded. Mental Status None recorded. Family History Nothing Reported. Medical History No medical history recorded. Past Encounters Encounter ID Performer Location Encounter Start Date Encounter Closed Date Diagnosis/Indication Diagnosis SNOMED-CT Code Diagnosis ICD10 Code Diagnosis IMO Codes Diagnosis Note [id number] [facility] [address] [facility] [address] [address] 12/27/2020 17:57:46 12/27/2020 19:20:40 [id number] [facility] [address] [place] [address] 01/02/2021 15:13:00 01/02/2021 17:10:07 [id number] [facility] [address] [place] [address] 12/23/2020 13:33:48 12/23/2020 14:25:48 Health Concerns Section Related Observation LastModified by Organization Detai ls LastModified Time None Recorded Concern Status LastModified by Organization Details LastModified Time None Recorded Advance Directives Directive None Recorded Payers Insurance Date Sequence Insurance Name Policy Number Policy Busch Covered Member ID Busch Member ID Guarantor Name 06/22/2022 [employer] Kostas Acharya
[2025-06-22] MEDS: oxyCODONE HCl Immed Release 5 MG TABLET PO (09:25)
--- NOTE | 2025-06-22 09:37 | ED_ITS ---
HPI - Fall General Chief Complaint: Fall Stated Complaint: fell down stairs, ?leg/ rib pain. Time Seen by Provider: 06/22/25 09:06 Source: patient, RN notes reviewed and old records reviewed Mode of arrival: ambulatory History of Present Illness ED Provider: Arabella Michelle PA-C HPI Narrative: 50-year-old male with no significant past medical history presenting to the ED complaining of left-sided rib and left hip /buttock pain s/p mechanical trip and fall down approximately 15 stairs 4 days ago. Denies head strike or LOC. States slipped on for stair and slid all the way down on left side. Reports difficulty ambulating secondary to pain. Denies neck pain, incontinence /retention, abdominal pain, vomiting. Denies anticoagulation use. MD complaint: fall Related Data Previous Rx's ?Medication ?Instructions ?Recorded acetaminophen 500 mg tablet 500 mg PO Q6H PRN fever or pain 02/14/22 (Tylenol Extra Strength) #14 tabs hydrochlorothiazide 25 mg tablet 25 mg PO DAILY #30 ta bs 02/27/23 acetaminophen 500 mg tablet 500 mg PO Q6H PRN fever or pain 06/22/25 (Tylenol Extra Strength) #14 tabs cyclobenzaprine 10 mg tablet 10 mg PO TID PRN muscle s pasm #10 06/22/25 tabs lidocaine 5 % topical patch 1 patch topical DAILY PRN pain #30 06/22/25 (Lidoderm) ea lisinopril 10 1 tab PO DAILY 30 days #30 t abs 06/22/25 mg-hydrochlorothiazide 12.5 mg tablet naproxen 500 mg tablet 500 mg PO BID PRN pain 10 da ys #20 06/22/25 tabs oxycodone 5 mg tablet 5 mg PO Q6H PRN pain (scale score 06/22/25 7-10) 3 days #9 tabs Allergies Allergy/AdvReac Type Severity Reaction Status Date / Time No Known Allergies Allergy Verified 06/22/25 08:47 Review of Systems Review of Systems: Yes all other systems are reviewed and are negative Constitutional: Constitutional: Reports as per [facility] Past Medical History Attestation statement: The following information was validated with the patient. 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 Physical Exam Vital Signs: Vital Signs: Last Vital Signs Temp 98 F 06/22/25 12:27 Pulse 110 H 06/22/25 12:27 Resp 18 06/22/25 12:27 BP 155/102 H 06/22/25 12:27 Pulse Ox 98 06/22/25 12:27 O2 Del Method Room Air 06/22/25 08:42 BMI result Body Mass Index 21.3 Const: Other: Appears in pain General: cooperative and no acute distress Orientation/consciousness: patient oriented x3 Limitations: no limitations HEENT: Head: Yes normal to inspection and Yes atraumatic Ears: hearing g rossly normal bilaterally General nose exam: Normal external nose present Face and sinus: Yes normal facial exam Eyes: General: appearance normal, both eyes and all related structures EOM: EOMs intact bilaterally Neck: Neck: Yes normal visual inspection and Yes no meningeal signs Chest: Other: Left posterior lateral reproducible rib tenderness to palpation. No ecchymosis or erythema. No flail chest. Chest palpation & inspection: normal inspection of the chest, no crepitus and tenderness Resp: Effort & Inspection: normal respiratory effort and no respiratory distress Auscultation: clear to auscultation bilaterally Cardio: Rate: regular rate and tachycardic Heart sounds: S1 normal heart sound present and S2 normal heart sound present GI: Inspection: Yes normal to inspection Palpation (GI): Soft to palpation, nontender, no guarding and not rigid : General: Yes no CVA tenderness Back/Spine/Pelvis: Other: No midline cervical/thoracic/lumbar spinous tenderness/step-off or deformity Back: no CVA tenderness Skin: Rashes: no rashes Wounds: no wounds Neuro: Other: Strength intact throughout. No saddle anesthesia. Sensation intact to light touch. Neurovascular intact distally General: patient oriented x3, tone normal, moves all extremities, no meningeal signs and CN's II-XI intact bilaterally Cranial nerves: Yes CN's II-XII intact bilaterally and Yes Bilaterally intact EOM present Gait exam (Neuro): Antalgic gait present Extrem: Other: Pelvis stable. No appreciable hip deformity. Left hip with reproducible tenderness and limited ROM secondary to pain. Neurovascularly intact distally. General: Yes normal to inspection Course Course Course Narrative: XR ribs LT min 3V w CXR1V IMPRESSION: Left-sided rib fractures as noted Nondisplaced fractures of the lateral aspect of the left-sided 9th and 10th ribs. XR hip LT w PEL1V IMPRESSION: Possible nondisplaced left inferior pubic ramus fracture. Mild degenerative changes of the hips. XR sacrum coccyx min 2V Impression: Probable nondisplaced inferior pubic ramus fracture on the left. > will obtain CT for further eval. -1043-- Patient persistently hypertensive. Denies taking BP medication. States was previously prescribed antihypertensives from our ED years ago however never picked up from the pharmacy. Denies headache or chest pain at present. Will give patient combination lisinopril/ HCTZ in the ED. He is agreeable to initiate treatment. -1136-- repeat BP 155/111. Patient does not currently have PCP. CT pelvis wo IV con Impression: Nondisplaced fractures involving the left superior and inferior pubic ramus. Nondisplaced left sacral body fracture. Nondisplaced posterior element fracture on the left of S1. Mild stranding within the presacral space and along the left psoas muscle with no significant intrapelvic hematoma. >> results discussed with patient. Patient is supplied with copy of CT results. Recommended PT / case management however patient is not agreeable at this time. States he lives with roommate and roommates parents and has been getting around with a walker which he has at home. Would like to go home. Discussed needed PCP follow-up for blood pressure and orthopedic follow-up. Always welcome to return to the ED Results discussed with patient including worrisome signs and symptoms and strict return precautions, and when to return to the emergency department. They verbalized understanding and feel safe for discharge at this time. Medications Administered Discontinued Medications Generic Name Dose Route Start Last Admin Trade Name Pallavi PRN Reason Stop Dose Admin Acetaminophen 650 mg 06/22/25 09:15 06/22/25 09:25 Acetaminophen 325 Mg Tablet PO 06/22/25 09:16 650 mg ONCE ONE Administration Hydrochlorothiazide 12.5 mg 06/22/25 10:40 06/22/25 10:53 Hydrochlorothiazide 12.5 Mg Tablet PO 06/22/25 10:41 12.5 mg ONCE ONE Administration Protocol Ketorolac Tromethamine 30 mg 06/22/25 10:24 06/22/25 10:54 Ketorolac Tromethamine 30 Mg/Ml Vial IM 06/22/25 10:25 30 mg ONCE ONE Administration Lisinopril 10 mg 06/22/25 10:40 06/22/25 10:54 Lisinopril 10 Mg Tablet PO 06/22/25 10:41 10 mg ONCE ONE Administration Protocol Oxycodone HCl 5 mg 06/22/25 09:15 06/22/25 09:25 Oxycodone Hcl Immed Release 5 Mg Tablet PO 06/22/25 09:16 5 mg ONCE ONE Administration Medical Decision Making Medical Decision Making MDM Narrative: Please refer to course for remaining clinical decision making, interpretation of labs/imaging results, and discussions with consultants and/or family members. Differential Diagnosis Differential Diagnoses: The differential diagnosis associated with the presentation includes As above Admission/Observation Consideration of admission/observation: Escalation of care including admission/observation considered Lab Data [facility] Lab Attestation statement: I reviewed the patient's lab results. Radiology Impression Discussion of test interpretation with radiology: I have reviewed the radiologist's reading. External Record Review External record reviewed: Inpatient record, Office record, Outpatient record, Prior outpatient labs, Prior outpatient radiology, Primary care record and Outside ED record Tests considered The following testing was considered but not selected: As above Discharge Plan Discharge Clinical Impression: Multiple rib fractures, Closed pelvic fracture, Closed sacral fracture Patient Disposition: Home, Self-Care Instructions: Pelvic Fracture (ED), Rib Fracture (ED), Sacral Fracture (ED) Additional Instructions: you have multiple fractures as discussed of your ribs, superior and inferior pubic ramus, sacral body and S1 fractures. This all requires pain control. Bear weight as tolerated Use walker at home YOU NEED TO FOLLOW UP WITH ORTHOPEDICS. CALL TOMORROW TO MAKE AN APPOINTMENT your blood pressure is also very elevated. You need to establish care with a primary care doctor. Please start taking blood pressure medication. If her pain is unbearable, you have recurrent falls, headache, chest pain, incontinence/ retention please return to the ED Flexeril is a muscle relaxer, take at night as it makes you drowsy, do not drive, drink alcohol, or operate machinery while taking it Naproxen as an anti-inflammatory / pain medication, take with food Lidoderm patches are numbing patches, apply to painful area oxycodone as an opiate pain medication, take only when pain is severe In addition take Tylenol at home If symptoms persist or worsen, pain becomes unbearable, you developed urinary retention or incontinence, or weakness return to the ED Prescriptions: New cyclobenzaprine 10 mg tablet 10 mg PO TID PRN (Reason: muscle spasm) Qty: 10 0RF acetaminophen [Tylenol Extra Strength] 500 mg tablet 500 mg PO Q6H PRN (Reason: fever or pain) Qty: 14 0RF lidocaine [Lidoderm] 5 % adhesive patch,medicated 1 patch topical DAILY MDD remove after 12 hours PRN (Reason: pain) Qty: 30 0RF Rx Instructions: leave on most painful area for up to 12 hrs naproxen 500 mg tablet 500 mg PO BID PRN (Reason: pain) 10 Days Qty: 20 0RF oxycodone 5 mg tablet 5 mg PO Q6H PRN (Reason: pain (scale score 7-10)) 3 Days Qty: 9 0RF Rx Instructions: Partial Fill upon patient request. lisinopril-hydrochlorothiazide 10-12.5 mg tablet 1 tab PO DAILY 30 Days Qty: 30 0RF No Action acetaminophen [Tylenol Extra Strength] 500 mg tablet 500 mg PO Q6H PRN (Reason: fever or pain) Qty: 14 0RF hydrochlorothiazide 25 mg tablet 25 mg PO DAILY Qty: 30 0RF Referrals: [facility] Community Navigation [Provider Group] [facility] Primary Care[facility] [Provider Group, Internal Medicine] - 5 days [facility] [Provider Group] - 1 week Stand Alone Forms: Work/School Release Interventions: ED Discharge Assessment Last Done: 06/22/25 12:27 Discharge Date/Time: 06/22/25 12:29 Print Language: French
[2025-06-22 10:17] VITALS: BP 182/116; PULSE 115; RESP 18; O2SAT 98
[2025-06-22 10:53] VITALS: BP 182/116
[2025-06-22 10:54] VITALS: BP 182/116
[2025-06-22 12:27] VITALS: BP 155/102; PULSE 110; RESP 18; TEMP 36.6; O2SAT 98
== END 2025-06-22 12:29 | disposition home or self-care (01) ==
PROVIDERS: Emergency Provider Emergency Medicine Emergency Medical Services
DX: S22.42XA Multiple fractures of ribs, left side, initial encounter for closed fracture (principal); S32.10XA Unspecified fracture of sacrum, initial encounter for closed fracture; S32.9XXA Fracture of unspecified parts of lumbosacral spine and pelvis, initial encounter for closed fracture; R07.89 Other chest pain; M25.552 Pain in left hip; W10.9XXA Fall (on) (from) unspecified stairs and steps, initial encounter; Y93.9 Activity, unspecified; Y92.9 Unspecified place or not applicable; Y99.8 Other external cause status
CPT/HCPCS: 71101; 72192; 72220; 73502; 96372; 99284; J1885

== ENCOUNTER → 2025-06-22 08:56 | Outpatient (BNV) | payer SELFPAY | PROVIDERS: Emergency Provider Emergency Medicine Emergency Medical Services; Visit Provider Radiology Diagnostic Radiology | DX: S32.512A Fracture of superior rim of left pubis, initial encounter for closed fracture (principal); S22.32XA Fracture of one rib, left side, initial encounter for closed fracture; M25.552 Pain in left hip; Z04.3 Encounter for examination and observation following other accident; W10.8XXA Fall (on) (from) other stairs and steps, initial encounter | CPT/HCPCS: 71101; 72192; 72220; 73502 ==